=== PATIENT | female | born 1955 | race African-American/Black ===

== ENCOUNTER → 2017-10-27 | Outpatient (CLI) | payer OTHER ==
[2017-10-27 11:26] LABS: ALANINE AMINOTRANSFERASE 35 U/L (9-52); ALBUMIN 4.3 g/dL (3.5-5.0); ALKALINE PHOSPHATASE 56 U/L (38-126); ANION GAP 10 (5-19); ASPARTATE AMINO TRANSFERASE 24 U/L (14-36); BILIRUBIN,DIRECT 0.2 mg/dL (0.0-0.4); BILIRUBIN,TOTAL 0.2 mg/dL (0.2-1.3); BLOOD UREA NITROGEN 20 mg/dL (7-20); CALCIUM 9.6 mg/dL (8.4-10.2); CARBON DIOXIDE 23 mmol/L (22-30); CHLORIDE 107 mmol/L (98-107); GLUCOSE 116 mg/dL (75-110); POTASSIUM 4.9 mmol/L (3.6-5.0); SODIUM 140.2 mmol/L (137-145); TRIGLYCERIDES 127 mg/dL (<150)
[2017-10-27 11:37] LABS: DIRECT LDL 59 mg/dL (<100)
== END ==
LOC: OD 10:32
PROVIDERS: ATTEND Internal Medicine Geriatric Medicine
DX: I10 Essential (primary) hypertension (principal); E11.65 Type 2 diabetes mellitus with hyperglycemia
CPT/HCPCS: 36415; 80053; 80061

== ENCOUNTER → 2018-05-06 | Outpatient (CLI) | payer OTHER ==
--- NOTE | 2018-05-07 08:56 | XCELERA REPORT ---
[address] [address] Lower Extremity Arterial Evaluation Name: LAUREL OROPEZA Age: 63 yrs Gender: Female : 1955 Patient Status: Outpatient Patient Location: Study Date: 05/06/2018 01:20 PM Procedure: A color flow and duplex scan of the lower extremity arteries was performed bilaterally with velocity and waveform anaylsis. Reason For Study: DIABETIC PERPHERAL ANGIOPATHY Ordering Physician: LAMONTE MOBLEY Performed By: Lila Mendoza Measurements and Calculations Right Left Prox PFA PSV 60.8 109.6 cm/sec Prox SFA PSV 68.6 75.9 cm/sec Mid SFA PSV 85.2 75.5 cm/sec Dist SFA PSV 78.4 87.2 cm/sec Dist Pop A PSV 39.7 43.2 cm/sec Mid DAVID PSV 46.0 60.9 cm/sec Mid FIRE TECHNICIAN PSV 57.1 72.5 cm/sec Right Side Arterial Evaluation Normal velocity and triphasic waveforms noted from the Common Femoral artery to the infrageniculate vessels. 0 % stenosis . Ankle Brachial index 0.9.. Left Side Arterial Evaluation Normal velocity and triphasic waveforms noted from the Common Femoral artery to the infrageniculate vessels. 0 % stenosis . Ankle Brachial index 0.94.. Interpretation Summary No hemodynamically significant lesions in the bilateral lower extremities, on duplex imaging, at rest. : LAMONTE MOBLEY > Nathan Gaona
== END ==
LOC: SP 15:22
PROVIDERS: ATTEND Internal Medicine Geriatric Medicine
DX: E11.51 Type 2 diabetes mellitus with diabetic peripheral angiopathy without gangrene (principal)
CPT/HCPCS: 93925